=== PATIENT | male | born 1975 | race Caucasian/White ===

== ENCOUNTER 2022-10-06 14:07 | Outpatient (OUT) | payer BC, SELFPAY ==
--- NOTE | 2022-10-06 14:17 | CT_ITS ---
[address] [address] Patient Name: MEREDITH CHEUNG MRN: [id number] date: 1975 Sex: M Assigned Patient Location: CT Current Patient Location: Accession/Order Number: [id number] Exam Date: 10/06/2022 14:45 Report Date: 10/07/2022 11:01 At the request of: NON-STAFF PHYSICIAN Procedure: CT soft tissue neck w con EXAMINATION: CT soft tissue neck w con HISTORY: Neck mass R22.1 ; posterior left neck lump for 2 years COMPARISON: No relevant comparison available. TECHNIQUE: Axial, Coronal, and Sagittal CT images created with IV contrast. Dose reduction techniques were achieved by using automated exposure control and/or adjustment of mA and/or kV according to patient size and/or use of iterative reconstruction technique. FINDINGS: NASOPHARYNX: No asymmetry of the fossae of Rosenmuller and torus tubarius. ORAL CAVITY: No visible mass. OROPHARYNX: No asymmetry of the facial and lingual tonsils. HYPOPHARYNX: No mass or other visible lesion. LARYNX: No mass or asymmetry of the vocal cords. SINUSES: No significant fluid or mucosal thickening. NECK GLANDS: No visible abnormality of the parotid, submandibular, and thyroid glands. LYMPH NODES: No pathological-appearing or enlarged lymph nodes. VASCULATURE: No suspicious abnormality. BONES: Multilevel mild degenerative disc disease. No significant osseous lesions. OTHER: No additional imaging findings. CT/CT soft tissue neck w con IMPRESSION: 1. No mass, cyst, lymph node, or focal skin thickening to account for patient's palpable lump. A nonencapsulated lipoma cannot be completely excluded. 2. No suspicious findings. Electronically authenticated by: JIMBO MCLAUGHLIN Date: 10/07/2022 11:01
== END 2022-10-06 14:08 | disposition home or self-care (01) ==
DX: R22.1 Localized swelling, mass and lump, neck (principal)
CPT/HCPCS: 70491; Q9967

== ENCOUNTER 2024-01-15 11:51 | Emergency (ER) | payer BC, SELFPAY ==
[2024-01-15 11:53] VITALS: BP 169/100; PULSE 108; BMI 23.1
--- NOTE | 2024-01-15 12:12 | ED.WOUNDLAC1 ---
HPI - Wound/Laceration General Chief Complaint: Wound/Laceration Stated Complaint: WOUND CHECK Time Seen by Provider: 01/15/24 11:54 Source: patient Mode of arrival: walk-in Limitations: no limitations History of Present Illness HPI narrative: 48-year-old male presents to the emergency department for laceration to his left wrist area. He cut it with a knife yesterday and he put superglue on it. It has been a very long time since he had a tetanus shot and friends suggested he come to the hospital to have it checked. No weakness or numbness. Related Data Previous Rx's ?Medication ?Instructions ?Recorded cephalexin 500 mg capsule 500 mg PO TID 5 days #15 caps 01/15/24 Allergies Allergy/AdvReac Type Severity Reaction Status Date / Time No Known Drug Allergies Allergy Verified 01/15/24 11:59 Review of Systems ROS Narrative A ten point review of systems is negative except as noted above. PFSH PFSH Social History Little interest or pleasure in doing things: not at all Feeling down, depressed, or hopeless: not at all Exam Narrative Exam Narrative: Nurses note and vital signs reviewed and patient is not hypoxic. General: The patient appears well and in no apparent distress. Patient is resting comfortably on cart. Skin: Warm, dry, no pallor noted. There is no rash noted. Head: Normocephalic, atraumatic Eye: Normal conjunctiva, no drainage Ears, Nose, Mouth, and Throat: oral mucosa is moist. Nares patent. Cardiovascular: Regular Rate and Rhythm Respiratory: Patient is in no distress, no accessory muscle use Back: non-tender GI: Normal bowel sounds, no tenderness to palpation, no masses appreciated. No rebound, guarding, or rigidity noted. Musculoskeletal: There is a gaping nonbleeding laceration near his left wrist on the ulnar side. There is dried superglue around it. There is no active bleeding or purulent drainage. No lymphangitis. Neurological: Awake and alert; fingers and wrist are full range of motion Psychiatric: Cooperative Constitutional Vital Signs, click to edit/add: Last Vital Signs Pulse 108 H 01/15/24 11:53 Resp 18 01/15/24 11:53 BP 169/100 H 01/15/24 11:53 Course Vital Signs Vital signs: Vital Signs Pulse Rate 108 H 01/15/24 11:53 Respiratory Rate 18 01/15/24 11:53 Blood Pressure 169/100 H 01/15/24 11:53 Pulse Rate 108 H 01/15/24 11:53 Respiratory Rate 18 01/15/24 11:53 Blood Pressure 169/100 H 01/15/24 11:53 MDM - Wound/Laceration MDM Narrative Medical decision making narrative: The wound occurred yesterday and will not be sutured today. Tetanus is updated and he was placed on prophylactic Keflex. Treatment diagnosis and follow-up were discussed with the patient. Differential Diagnosis Differential diagnosis: Likely laceration and avulsion of skin Discharge Plan Discharge Chief Complaint: Wound/Laceration Clinical Impression: Laceration Patient Disposition: Home, Self-Care Time of Disposition Decision: 12:08 Condition: Good Mode of Transportation: Private Vehicle Prescriptions / Home Meds: New cephalexin 500 mg capsule 500 mg PO TID 5 Days Qty: 15 0RF Print Language: Malaysian Instructions: Laceration Without Closure (ED) Referrals: Physician,Non-Staff, MD [Primary Care Provider] - 1 week
--- NOTE | 2024-01-15 12:15 | PC.NURSE ---
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 Pt states knife was clean prior to cut. Pt tried to close cut with super glue but it did not hold well. There is no bleeding noted and area has dried superglue on wound and surrounding tissue.
[2024-01-15] MEDS: ADACEL DIPH,PERTUSS(ACELL),TET VAC/PF 0.5 ML ADULT SYRINGE IM (12:50)
== END 2024-01-15 12:59 | disposition home or self-care (01) ==
PROVIDERS: Emergency Provider Emergency Medicine
DX: S61.512A Laceration without foreign body of left wrist, initial encounter (principal); W26.0XXA Contact with knife, initial encounter; Z23 Encounter for immunization
CPT/HCPCS: 90471; 90715; 99283